=== PATIENT | female | born 2005 | race Caucasian/White ===

== ENCOUNTER 2024-09-26 13:46 | Emergency (ER) | payer OTHER, SELFPAY ==
[2024-09-26 14:04] VITALS: BP 120/69; PULSE 72; RESP 16; TEMP 36.6; O2SAT 100
[2024-09-26 14:22] LABS: BEDSIDEPREGUCG Negative (Negative)
[2024-09-26 14:29] LABS: Add Urine Microscopic? YES; Appearance Urine Turbid (Clear)
[2024-09-26 14:40] LABS: Bacteria Urine 1+ /hpf; Need Manual Microscopic Reviewed; Non Pathogenic Casts 0-2; RBC Urine >100 /hpf (0-2); Squamous Epithelial Cell Urine None Seen /hpf (Few); WBC Urine >100 /hpf (0-3)
[2024-09-26 14:45] LABS: Color Urine Red (Yellow)
[2024-09-26 15:11] VITALS: BP 106/73; PULSE 86; RESP 16; TEMP 36.5; O2SAT 98
[2024-09-26] MEDS: NITROFURANTOIN MONOHYD MACROCR 100 MG CAP PO (15:59)
--- NOTE | 2024-09-26 19:19 | ED.FEMALEGU ---
HPI - Female Genitourinary General Chief complaint: Urogenital-Female Stated complaint: UTI Time Seen by Provider: 09/26/24 15:25 History of Present Illness HPI Narrative: Patient was recently diagnosed with a UTI, however she has not been taking her medications as prescribed, and overall feels likely UTI has been getting worse. Reports dysuria with some chills however no nausea or vomiting, and no flank or back pain Related Data Allergies Allergy/AdvReac Type Severity Reaction Status Date / Time sulfamethoxazole Allergy Hives Verified 09/26/24 13:49 [From ] trimethoprim [From ] Allergy Hives Verified 09/26/24 13:49 Review of Systems Review of Systems: All systems reviewed & are unremarkable except as noted in HPI and below Exam Narrative: EXAMINATION OF ORGAN SYSTEMS/BODY AREAS: Constitutional: Vital signs per nursing GENERAL:[No acute distress, non-toxic appearing.] HEAD: Normal with no signs of head trauma. EYES: EOMI, conjunctiva normal ENT: Hearing grossly intact LUNGS: Nonlabored breathing. HEART: [Regular rate and rhythm] ABD: [Soft], [nontender to palpation], no CVA tenderness EXT: Normal range of motion SKIN: [No rashes or lesions.] NEURO: [Alert and oriented x 3. No gross focal sensory or strength deficits.] PSYCH: Normal affect Course Vital Signs Vital signs: Vital Signs Temperature 97.9 F 09/26/24 14:04 Pulse Rate 72 09/26/24 14:04 Respiratory Rate 16 09/26/24 14:04 Blood Pressure 120/69 09/26/24 14:04 Pulse Oximetry 100 09/26/24 14:04 Temperature 97.7 F 09/26/24 15:11 Pulse Rate 86 09/26/24 15:11 Respiratory Rate 16 09/26/24 15:11 Blood Pressure 106/73 09/26/24 15:11 Pulse Oximetry 98 09/26/24 15:11 Oxygen Delivery Room Air 09/26/24 15:11 MDM - Female Genitourinary MDM Narrative Medical decision making narrative: 19 year-old patient presenting with suprapubic pain and urinary symptoms consistent with UTI. Urinalysis is obtained and positive for signs of infection. Urine culture sent. [ test is negative.] Patient started on Macrobid as she already tried taking Augmentin and was not effective, she has no flank pain and she has normal vital signs so I doubt pyelonephritis, and she is strongly advised to return for any increasing or worsening pain, fevers or vomiting. They expressed understanding of instructions and is discharged in stable condition. Lab Data Labs: Lab Results 09/26/24 09/26/24 Range/Units 14:05 14:18 Urine Color Red H (Yellow) Urine Appearance Turbid H (Clear) Urine pH TNP Ur Specific [place] TNP Urine Protein TNP Urine Glucose (UA) TNP Urine Ketones TNP Ur Blood (Man) TNP Urine Nitrate TNP Urine Bilirubin TNP Urine Urobilinogen TNP Add Ur Microanalysis Reviewed Leukocyte Esterase Rfl TNP Urine RBC >100 H (0-2) /hpf Urine WBC >100 H (0-3) /hpf Ur Squamous Epith Cells None seen (Few) /hpf Urine Bacteria 1+ H /hpf Urine Casts 0-2 POC Urine HCG, Qual Negative (Negative) Discharge Plan Discharge Clinical Impression: Urinary tract infection Patient Disposition: Home, Self-Care Condition: Stable Instructions: Antibiotic Form, Urinary Tract Infection in Women (ED) Additional Instructions: Please follow up with your doctor; please take the antibiotics as prescribed. You can always return for any further issues. Prescriptions: New nitrofurantoin monohyd/m-cryst [Macrobid] 100 mg capsule 100 mg PO Q12H 7 Days Qty: 14 0RF Rx Instructions: must administer with a meal/food Follow-up/Referrals: Dale,Perry Sanchez MD [Primary Care Provider] - 2 Days Stand Alone Forms: Work/School Release IP
== END 2024-09-26 16:03 | disposition home or self-care (01) ==
PROVIDERS: Emergency Provider Emergency Medicine; PCP Family Medicine
DX: N39.0 Urinary tract infection, site not specified (principal)
CPT/HCPCS: 81001; 81025; 87086; 99283; A9270

== ENCOUNTER 2025-02-13 13:21 | Outpatient (CLI) | payer OTHER, SELFPAY ==
--- OUTSIDE RECORDS SUMMARY | 2025-02-13 14:14 | XMS_ITS | Clinical Summary ---
Author Organization [facility] Address [address] [place] [address] Care Team Providers Care Compress Machine Operator Name Role Phone Perry Hunter MD Primary Care Provider [phone] Allergies Active Allergy Reactions Criticality Noted Date Comments Sulfamethoxazole-Tri methoprim Hives,Other (See comments),Urticaria High 11/30/2017 Reaction: Other reaction(s): Other (See Comments) Medications spironolactone (ALDACTONE) 100 mg tablet Take 2 tablets (200 mg total) by mouth daily 11/29/2023 Active drospirenone-et hinyl estradioL (Keke, 28,) 3-0.03 mg per tabletIndicatio ns:Acne Vulgaris,Premen strual Dysphoric Disorder Take 1 tablet by mouth daily 84 tablet 3 01/10/2024 Active sertraline (ZOLOFT) 50 mg tabletIndicatio ns:ARMEN (generalized anxiety disorder) TAKE 1 TABLET BY MOUTH EVERY MORNING 90 tablet 1 04/10/2024 Active ARIPiprazole (ABILIFY) 2 mg tablet Take 1 tablet (2 mg total) by mouth daily 04/14/2024 Active hydrOXYzine (ATARAX) 10 mg tablet TAKE 1-2 TABLETS (10-20 MG) BY MOUTH EVERY DAY NEEDED FOR ANXIETY/ PANIC 04/14/2024 Active dicyclomine (BENTYL) 10 mg capsule TAKE 1 CAPSULE (10 MG TOTAL) BY MOUTH 2 (TWO) TIMES A DAY NEEDED (ABDOMINAL CRAMPS) 180 capsule 1 06/28/2024 Active Bacillus coagulans (PROBIOTIC, B. COAGULANS, ORAL) Take by mouth Active buPROPion XL (WELLBUTRIN XL) 300 mg 24 hr tablet TAKE 1 TABLET (300 MG TOTAL) BY MOUTH EVERY MORNING. 90 tablet 09/30/2024 Active Active Problems Problem Noted Date Diagnosed Date Nausea 06/14/2024 Diarrhea 06/14/2024 Abnormal weight loss 09/18/2023 Assessment & Plan (09/18/2023 1:00 PM CDT): Has lost 20 lb over the past year has gained 10 lb back. -will order labs for further evaluation Moderate episode of recurrent major depressive d isorder 11/23/2021 Assessment & Plan (11/16/2022 3:14 PM ADMINISTRATOR): Restart wellbutrin XL at 150 mg daily. She'll let me know if she feels needs to go up on dose again or add back on lexapro but she's been doing better and would like to take less medication if possible. Assessment & Plan (07/07/2022 12:25 PM CDT): Improved and stable on lexapro 10 mg daily and wellbutrin XL 300 mg daily. Will continue. Assessment & Plan (05/26/2022 8:09 AM CDT): Improving. Increase Wellbutrin XL to 300 mg daily. Continue lexapro 10 mg daily. Discussed with patient about common side effects of medication including potential for worsening symptoms or new/worsening suicidal thoughts. Should this occur, patient should stop the medication immediately and call/RTC or go to ER. Medications for depression/anxiety can take up to 4-6 weeks to reach maximum effectiveness in the body. Call office to report any concerning side effects or new/worsening symptoms. Assessment & Plan (04/26/2022 7:42 AM CDT): Some side effects with increased dose of lexapro. Decrease lexapro to 10 mg daily and add wellbutrin XL 150 mg daily. No history of seizures. Discussed with patient about common side effects of medication including potential for worsening symptoms or new/worsening suicidal thoughts. Should this occur, patient should stop the medication immediately and call/RTC or go to ER. Medications for depression/anxiety can take up to 4-6 weeks to reach maximum effectiveness in the body. Call office to report any concerning side effects or new/worsening symptoms. Assessment & Plan (03/23/2022 3:24 PM CDT): Improving but will increase to lexapro 20 mg daily. Recheck in 4 weeks. Advised ED for any suicidal thoughts. Has seen counselor in the past. She is released to attend graduation next week. ARMEN (generalized anxiety disorder) 02/24/2021 Assessment & Plan (03/14/2023 7:58 AM CDT): Increase wellbutrin XL to 300 mg daily. Discussed with patient about common side effects of medication including potential for worsening symptoms or new/worsening suicidal thoughts. Should this occur, patient should stop the medication immediately and call/RTC or go to ER. Medications for depression/anxiety can take up to 4-6 weeks to reach maximum effectiveness in the body. Call office to report any concerning side effects or new/worsening symptoms. She'll give me an update in 4-6 weeks through MyChart. Chronic tension-type headache, intractable 12/12 Migraine without aura and wi th status migrainosus, not intractable 11/15/2018 Assessment & Plan (11/16/2022 3:14 PM ADMINISTRATOR): Stable without prophylaxis at this time. Will call if becomes more frequent again. Assessment & Plan (12/15/2018 6:15 PM ADMINISTRATOR): H/o of migraines. Currently stable and asymptomatic. If migraine frequency or duration worsen recommend follow up in office. Otherwise follow up with neurology as scheduled. Assessment & Plan (11/19/2018 9:15 AM ADMINISTRATOR): Patient with 2 years history of headaches. Symptoms more consistent with migraines. Headache did resolve with a single Imitrex dose. Currently asymptomatic without any neurological deficits. However given the chronicity of the headaches need additional evaluation to rule out any other neurological etiologies. At this time will give a order for the CT of the head and referral to [facility] Neurology. Assessment & Plan (11/15/2018 5:54 PM ADMINISTRATOR): Suspect migraine headaches. Will start Imitrex. Migraine education provided. Follow-up in 4 weeks. Dysmenorrhea 11/30/2017 Resolved Problems Problem Noted Date Diagnosed Date Resolved Date Diarrhea 09/18/2023 12/13/2023 Assessment & Plan (09/18/2023 1:00 PM CDT): Chronic diarrhea intermittently. -we will order labs and stool studies for further evaluation -schedule colonoscopy -The risks (risks of bleeding, infection, perforation requiring surgery, missed polyps/cancer, dental injury, aspiration pneumonia, anesthesia complications such as drug reaction and cardiopulmonary complications including rare chance of ), benefits, and alternatives of the planned procedure were explained to the patient who understands and consents to having procedure done. Nausea 02/24/2021 12/13/2023 Assessment & Plan (09/18/2023 12:59 PM CDT): Chronic nausea for over a year, getting progressively worse. Symptoms seem to be in the mornings and after meals. Associated with fullness and bloating. Zofran has not helped however Compazine seems to help with the nausea. She admits to using marijuana nightly. Did a 4 week trial of PPI however this did not help and actually made her symptoms worse. -avoid NSAIDS and marijuana -we will order labs and ultrasound for further evaluation -schedule EGD -The risks (risks of bleeding, infection, perforation requiring surgery, missed polyps/cancer, dental injury, aspiration pneumonia, anesthesia complications such as drug reaction and cardiopulmonary complications including rare chance of ), benefits, and alternatives of the planned procedure were explained to the patient who understands and consents to having procedure done. Assessment & Plan (03/14/2023 7:58 AM CDT): Chronic. No relation to meals. US abdomen normal in the past. She saw pediatric GI a few years ago. No definitive diagnosis given. Will check food allergy panel and refer to GI. Can use phenergan PRN for nausea. Assessment & Plan (04/26/2022 7:41 AM CDT): Intermittent. Possible gastritis versus GERD versus side effect of lexapro. Start pepcid PRN Vertigo 02/24/2021 12/13/2023 Dyspnea on exertion 06/04/2018 11/23/19 Chest pain on breathing 06/04/201802/2022 Chest pain 11/23/2021 Encounters Date Type Department Care Team Description 02/11/2025 Telephone [facility] Family Medicine at [address] [place] [address] Perry Hunter MD Referral Request from Last 3 Months Immunizations Immunization Administration Dates Next Due DTaP 5 Pertussis 09/02/2008, 5,02/17/2004,12/11,2003 DTaP, Unspecified 09/02/2008, 5,02/17/2004,12/11,2003 HPV, Quadrivalent 04/23/2018 HPV9 07/06/2022 Hep A, Unspecified 10/06/2010,04/05/2010 Hep B / HiB 08/17/2004 Hep B, Unspecified 2003,2003 HiB 08/17/2004,2003,2003 IPV 04/05/2010, 4,2003,10/20 Influenza, Quadrivalent, Tila l Culture-based MDCK, Preservative Free, Antibiotic Free, Intramuscular 09/07/2021 Influenza, Quadrivalent, Spl it, Preservative Free, Intramuscular 09/12/2023,11/16/2022,09/15/2020,12/28 Influenza, Unspecified 10/30/2018,2016,07/19/2016,09/03 MMR 08/12/2009,08/17/2004 Meningococcal ACWY, Unspecified 04/16/2015 Meningococcal Conjugate (Menveo) 03/23/2021 Meningococcal MCV4P (Menactra) 04/16/2015 Pneumococcal Conjugate PCV 13 02/14/2005 ,08/17/2004,2003,10/20 Pneumococcal Conjugate, Unspecified 01/19,08/17/2004,2003,10/20 Polio, Unspecified 04/05/2010, 4,2003,10/20 Tdap 04/01/2014 Varicella 08/12/2009,08/12/2007,02/14/2005 Surgical History Surgery Date Site/Laterality Comments NO PAST SURGERIES WISDOM TOOTH EXTRACTION 01/21/2022 Medical History Medical History Date Comments Dysmenorrhea Migraine headache Depression Anxiety Medullary sponge kidney of both kidneys 08/2023 seen in the scan Diarrhea Stomach cramps Bloating Family History Medical History Relation Name Comments Asthma Father Heart attack Maternal Grandmother Hyperlipidemia Maternal Grandmother Hypertension Maternal Grandmother No Known Problems Mother Breast cancer Neg Hx Colon cancer Neg Hx Congenital Hearing Loss Neg Hx Congenital heart disease Neg Hx Deep vein thrombosis Neg Hx Ovarian cancer Neg Hx Seizures Neg Hx Sudden Neg Hx Uterine cancer Neg Hx Relation Name Status Comments Father Maternal Grandfather Alive Maternal Grandmother Alive Mother Paternal Grandfather Alive Paternal Grandmother Alive Sister Alive Social History Tobacco Use Types Packs/Day Years Used Date Smoking Tobacco: Every Day Vaping Smokeless Tobacco: Never Tobacco Cessation:Counseling Given: Not Answered Alcohol Use Standard Drinks/Week Comments No 0 (1 standard drink = 0.6 oz pur e alcohol) AUDIT-C Answer Date Recorded Q1: How often do you have a drink containing alc ohol? Monthly or less 07/08/2024 Q2: How many drinks containi ng alcohol do you have on a typical day when you are drinking? 1 or 2 07/08/2024 Q3: How often do you have si x or more drinks on one occasion? Never 07/08/2024 PHQ-2 Answer Date Recorded PHQ-2 Total Score (If total score is 3 or more points, staff should administer the PHQ-9) 0 06/21/2024 Personal Safety Answer Date Recorded Have you ever been in or are you currently in a harmful physical or emotional relationship or is someone making you feel afraid or unsafe? Denies 07/08/2024 Comments No Sex and Gender Information Value Date Recorded Sex Assigned at Not on file Legal Sex Female 6:16 AM ADMINISTRATOR Gender Identity Female 12/14/2021 12:07 PM ADMINISTRATOR Sexual Orientation Not on file History Length Weight Head Circum Date/Time Gestation Age D/C Weight APGARs Delivery Method Feeding 2003 Term , no complications , no NICU stay Obstetrics History Para Term AB IAB SAB Ectopic Multiple Livin g Live Births 0 0 0 0 0 0 0 0 0 0 0 Last Filed Vital Signs Vital Sign Reading Time Taken Comments Blood Pressure 96/67 07/08/2024 10:20 AM CDT Pulse 50 07/08/2024 10:25 AM CDT Temperature 36.3 C (97.4 F) 07/08/2024 9:30 AM CDT Respiratory Rate 14 07/08/2024 10:20 AM CDT Oxygen Saturation 100% 07/08/2024 10:20 AM CDT Inhaled Oxygen Concentration - - Weight 53.3 kg (117 lb 8 oz) 06/21/2024 10:22 AM CDT Height 162.6 cm (5' 4 ) 06/21/2024 10:22 AM CDT Body Mass Index 20.17 06/21/2024 10:22 AM CDT Plan of Treatment Health Maintenance Due Date Last Done Comments Cervical Cancer Screening 2003 Pneumococcal vaccine <65 (1 of 1 - PPSV23) 2009 02/14/2005, 02/14/2005, 08/17/2004, Additional history exists Meningococcal B Vaccine (1 o f 2 - Standard) 2019 DTaP/Tdap/Td Vaccine (7 - Td or Tdap) 04/01/2024 04/01/2014, 09/02/2008, 09/02/2008, Additional history exists Covid-19 Vaccine (3 - 2023-2 5 season) 2024 11/03/2021, 10/13/2021 Influenza Vaccine (#1) 2024 3, 11/16/2022, 09/07/2021, Additional history exists Regular Well Visit/Exam 18-64 01/10/2025, 07/13/2023, 12/20/2022, Additional history exists Depression Screening 06/21/2025 06/21/2024, 12/13/2023, 11/16/2023, Additional history exists Hepatitis B Screening Completed 08/17/2004 , 2003, 2003 Varicella Vaccines Completed 08/12/2009, 0 08/12/2007, 02/14/2005 Meningococcal Vaccine Completed 03/23/2021 , 04/16/2015, 04/16/2015 HPV Vaccines Completed 07/06/2022, 04/23/2018 Hepatitis C Screening Completed 11/23/2023, 023 Goals Goal Patient Goal Type Associated Problems Recent Progress Patient-Stated? Author BH-Pain Behavioral Health Improving( 5:09 PM ADMINISTRATOR) Kina Sotomayor, PhD Note: Increase non-pharmacological strategies for coping with pain and GI Sx Procedures Procedure Name Priority Date/Time Associated Diagnosis Comments HEPATITIS C ANTIBODY Routine 11/23/2023 2:06 PM ADMINISTRATOR STI (sexually transmitted infection) from Last 3 Months or Most Recently Relevant to Health Maintenance Results * Hepatitis C antibody Blood (11/23/2023 2:06 PM ADMINISTRATOR) Hep C Ab NON-REACTI VE NON-REACT ASHOK [facility] Comment: HCV antibody was non-reactive. There is no laboratory evidence of HCV infection. In most cases, no further action is required. However, if recent HCV exposure is suspected, a test for HCV RNA (test code 24551) is suggested. For additional information please refer to http://education.[employer]/faq/NJS33w3 (This link is being provided for informational/ educational purposes only.) Blood 11/23/2023 2:06 PM ADMINISTRATOR 11/23/2023 2:09 PM ADMINISTRATOR Tracey Bruce MD LAB MICROBIOLOGY - GEN ERAL ORDERABLES Final Result [facility] [id number] [id number] from Last 3 Months or Most Recently Relevant to Health Maintenance Insurance [address] [place], [place] [id number] [facility] O Care Teams Compress Machine Operator Relationship Specialty Start Date End Date Perry Hunter MD PCP - General Family Medicine 02/24/21
--- OUTSIDE RECORDS SUMMARY | 2025-02-13 14:14 | XMS_ITS | Referral Summary ---
Author Organization [facility] Address [address] [place] [address] Care Team Providers Care Tire Debeader Name Role Phone Perry Hunter MD Primary Care Provider [phone] Encounters Date Type Department Care Team Description 02/11/2025 Telephone [facility] Family Medicine at [address] [place] [address] Perry Hunter MD Referral Request from Last 3 Months Allergies Active Allergy Reactions Criticality Noted Date [...] 11/23/2021 Assessment & Plan (11/16/2022 3:14 PM COST ACCOUNTING MANAGER): Restart wellbutrin XL at 150 mg daily. [...] 11/15/2018 Assessment & Plan (11/16/2022 3:14 PM COST ACCOUNTING MANAGER): Stable without prophylaxis at this time. Will call if becomes more frequent again. Assessment & Plan (12/15/2018 6:15 PM COST ACCOUNTING MANAGER): H/o of migraines. Currently stable and asymptomatic. If migraine frequency or duration worsen recommend follow up in office. Otherwise follow up with neurology as scheduled. Assessment & Plan (11/19/2018 9:15 AM COST ACCOUNTING MANAGER): Patient with 2 years history of headaches. Symptoms more consistent with migraines. Headache did resolve with a single Imitrex dose. Currently asymptomatic without any neurological deficits. However given the chronicity of the headaches need additional evaluation to rule out any other neurological etiologies. At this time will give a order for the CT of the head and referral to [facility] Neurology. Assessment & Plan (11/15/2018 5:54 PM COST ACCOUNTING MANAGER): Suspect migraine headaches. Will start Imitrex. Migraine [...] pain on breathing 06/04/201802/2022 Chest pain 11/23/2021 Immunizations Immunization Administration Dates Next Due DTaP [...] Unspecified 04/05/2010, 4,2003,10/20 Tdap 04/01/2014 Varicella 08/12/2009,08/12/2007,02/14/2005 Social History Tobacco Use Types Packs/Day Years [...] on file Legal Sex Female 6:16 AM COST ACCOUNTING MANAGER Gender Identity Female 12/14/2021 12:07 PM COST ACCOUNTING MANAGER Sexual Orientation Not on file Last Filed Vital Signs Vital Sign Reading [...] 06/21/2024 10:22 AM CDT Plan of Treatment Not on file Goals Goal Patient Goal Type Associated Problems Recent Progress Patient-Stated? Author BH-Pain Behavioral Health Improving( 5:09 PM COST ACCOUNTING MANAGER) Kina Sotomayor, PhD Note: Increase non-pharmacological strategies for coping with pain and GI Sx Procedures Procedure Name Priority Date/Time Associated Diagnosis Comments HEPATITIS C ANTIBODY Routine 11/23/2023 2:06 PM COST ACCOUNTING MANAGER STI (sexually transmitted infection) from Last 3 Months or Most Recently Relevant to Health Maintenance Results * Hepatitis C antibody Blood (11/23/2023 2:06 PM COST ACCOUNTING MANAGER) Hep C Ab NON-REACTI VE NON-REACT ASHOK [facility] Comment: HCV antibody was non-reactive. There is no laboratory evidence of HCV infection. In most cases, no further action is required. However, if recent HCV exposure is suspected, a test for HCV RNA (test code 28782) is suggested. For additional information please refer to http://education.[employer]/faq/CVW56g6 (This link is being provided for informational/ educational purposes only.) Blood 11/23/2023 2:06 PM COST ACCOUNTING MANAGER 11/23/2023 2:09 PM COST ACCOUNTING MANAGER Tracey Bruce MD LAB MICROBIOLOGY - GEN ERAL ORDERABLES Final Result [facility] [id number] [id number] from Last 3 Months or Most Recently Relevant to Health Maintenance Insurance [facility] H[facility] Care Teams Tire Debeader Relationship Specialty Start Date End Date Peryr Hunter MD PCP - General Family Medicine 02/24/21
--- OUTSIDE RECORDS SUMMARY | 2025-02-13 14:14 | XMS_ITS | Encounter Summary ---
Author Organization [facility] Address [address] [place] [address] Care Team Providers Care Kitchen Manager Name Role Phone Perry Hunter MD Primary Care Provider [phone] Encounter Details Date Type Department Care Team (Late st Contact Info) Description 03/23/2021 Telephone [facility] Ultrasound [place] [id number] Yaneth Rivera, IVY Social History Tobacco Use Types Packs/Day Years Used Date Smoking Tobacco: Never Smokeless Tobacco: Never Alcohol Use Standard Drinks/Week Comments No 0 (1 standard drink = 0.6 oz pur e alcohol) PHQ-2 Answer Date Recorded PHQ-2 Total Score (If total score is 3 or more points, staff should administer the PHQ-9) 0 02/24/2021 Comments No Sex and Gender Information Value Date Recorded Sex Assigned at Not on file Legal Sex Female 6:16 AM DUDE WRANGLER Gender Identity Female 12/14/2021 12:07 PM DUDE WRANGLER Sexual Orientation Not on file documented as of this encounter Plan of Treatment Not on file documented as of this encounter Visit Diagnoses Not on filedocumented in this encounter Additional Health Concerns Infection Onset Date Last Indicated Resolved Time COVID: Suspected 11/23/2023 11/23/2023 11/24/2023 3:05 AM DUDE WRANGLER Exposure, COVID-19 Comment:Added automatically based on COVID19 lab answers indicating exposure risk 11/23/2023 11/23/2023 12/03/2023 3:[address] COVID: Suspected 11/23/2023 11/24/2023 11/24/2023 10:11 AM DUDE WRANGLER documented as of this encounter Care Teams Kitchen Manager Relationship Specialty Start Date End Date Perry Hunter MD PCP - General Family Medicine 02/24/21 documented as of this encounter
--- OUTSIDE RECORDS SUMMARY | 2025-02-13 14:14 | XMS_ITS | Encounter Summary ---
Author Organization [facility] Healthcare Address [address] [place] [address] Care Team Providers Care Curber Name Role Phone Perry Hunter MD Primary Care Provider [phone] Reason for Visit * Reason Onset Date Comments Referral Request 02/11/2025 Encounter Details Date Type Department Care Team (Late st Contact Info) Description 02/11/2025 Telephone [facility] Family Medicine at [address] [place] [address] Perry Hunter MD [address] [place] [phone] Referral Request Social History Tobacco Use Types Packs/Day Years Used Date Smoking Tobacco: Every Day Vaping Smokeless Tobacco: Never Alcohol Use Standard Drinks/Week [...] on file Legal Sex Female 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 I faxed coverage & benefit information from [facility] to [facility] as well. * Telephone Encounter - Candace Flores - 02/11/2025 11:00 AM CDT Referral Provider Name: Jordy Vallejo Specialty: gastroenterology Address: [address] [place] [address], Zip: [place] [address] Diagnosis Code/Symptom/Reason Patient is being seen: IBS and Gastritis Date of Appointment: 02/12/2025 NPI#: [id number] Tax ID#: [id number] Is insurance in chart up to date? yes Additional Comments: [employer] O insurance referral Does message need to be routed? Yes-Action Needed documented in this encounter Plan of Treatment Not on file documented as of this encounter Goals Goal Patient Goal Type Associated Problems Recent Progress Patient-Stated? Author BH-Pain Behavioral Health Improving( 5:09 PM COMMERCIAL ATTORNEY) Kina Sotomayor, PhD Note: Increase non-pharmacological strategies for coping with pain and GI Sx documented as of this encounter Visit Diagnoses Not on filedocumented in this encounter Care Teams Curber Relationship Specialty Start Date End Date Perry Hunter MD PCP - General Family Medicine 02/24/21 documented as of this encounter
--- OUTSIDE RECORDS SUMMARY | 2025-02-13 14:14 | XMS_ITS | Clinical Summary ---
Author Organization [facility] Address [address] [place] [address] Phone Care Team Providers Care Web Applications Architect Name Role Phone Perry Hunter MD Primary Care Provider [phone] Allergies Active Allergy Reactions Criticality Noted Date Comments Sulfamethoxazole-Trimethop rim Hives,Other (See Comments) High 11/30/2017 Medications nortriptyline (PAMELOR) 25 mg capsule Take 1 Capsule (25 mg) by mouth daily at bedtime. 30 Capsule 12 08/09/2019 Active busPIRone (BUSPAR) 10 mg tablet Take 10 mg by mouth 2 times daily. 08/09/2023 Active prochlorperazin e maleate (COMPAZINE) 10 mg tablet Take 10 mg by mouth every 6 hours as needed. 01/31/2022 Active Active Problems Problem Noted Date Diagnosed Date Intractable migraine without aura and without status migrainosus 12/12/2018 Chronic tension-type headache, intractable 12/12 Family History Medical History Relation Name Comments Migraines Father Healthy Mother Healthy Sister 1 Healthy Sister 2 Relation Name Status Comments Father Mother Sister 1 Sister 2 Social History Tobacco Use Types Packs/Day Years Used Date Smoking Tobacco: Never Smokeless Tobacco: Never Tobacco Cessation:Counseling Given: Not Answered Alcohol Use Standard Drinks/Week Comments No 0 (1 standard drink = 0.6 oz pur e alcohol) Adolescent Education Answer Date Record ed Getting School Help Needed Not on file 06/12 Feeling Safe Answer Date Recorded Are you in a relationship wi th someone who hurts you emotionally and/or physically? 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 Gender Identity Not on file Sexual Orientation Not on file Last Filed Vital Signs Vital Sign Reading Time Taken Comments Blood Pressure 121/67 09/07/2023 10:53 PM CDT Pulse 94 09/07/2023 10:53 PM CDT Temperature 37.2 C (98.9 F) 09/07/2023 10:53 PM CDT Respiratory Rate 18 09/07/2023 10:53 PM CDT Oxygen Saturation 99% 09/07/2023 10:53 PM CDT Inhaled Oxygen Concentration - - Weight 52.2 kg (115 lb) 09/07/2023 7:48 PM CDT Height 162.6 cm (5' 4 ) 09/07/2023 7:48 PM CDT Body Mass Index 19.74 09/07/2023 7:48 PM CDT Plan of Treatment Health Maintenance Due Date Last Done Comments CHLAMYDIA SCREENING (ANNUAL) 11-24 YEARS 2014 DTAP/TDAP/TD VACCINES (6 - Td or Tdap) 04/01/2024 04/01/2014, 09/02/2008, 09/02/2008, Additional history exists INFLUENZA VACCINE (#1) 2024 , 09/07/2021, 09/15/2020, Additional history exists CERVICAL CANCER SCREENING 2024 PAP SMEAR 2024 PAP SMEAR 2024 HEPATITIS B VACCINES Completed 08/17/2004, 2003, 2003 PNEUMOCOCCAL VACCINE 0-49 YEARS Aged Out 02/14/2005, 02/14/2005, 08/17/2004, Additional history exists No longer eligible based on patient's age to complete this topic HPV VACCINES Completed 07/06/2022, 04/23/2018 Insurance [employer] HMO Care Teams Web Applications Architect Relationship Specialty Start Date End Date Perry Hunter MD PCP - General Family Practice 09/07/23
--- OUTSIDE RECORDS SUMMARY | 2025-02-13 14:14 | XMS_ITS | Clinical Summary ---
Author Organization [facility] Address [address] [place] [address] Care Team Providers Care Country Director Name Role Phone Aicha Myles DO Primary Care Provider Unavailable Source Comments [facility],non-owned Affiliates and Associated Physician Practices is amultiple site organization consisting of ambulatory clinics and hospital sitesin [place], [place], [place] and [place]. This disclosure is being madepursuant to the Care Everywhere program and may not contain all information available regarding this patient. Last updated 18.[facility] Allergies Active Allergy Reactions Criticality Noted Date Comments Sulfamethoxazole W-Trimethoprim Urticaria Medium 06/2019 Medications * Be aware that medications may not be up to date on this document. Alwaysverify current medications with the patient. Medication Sig Dispensed Refills Start Date End Date Status SPRINTEC 28 0.25-35 MG-MCG tablet Take 1 tablet by mouth once daily 06/02/2020 Active nortriptyline (PAMELOR) 25 MG capsuleIndications:I ntractable chronic migraine without aura and without status migrainosus Take 1 (one) capsule by mouth at bedtime 30 capsule 3 01/19/2022 Active ketorolac (TORADOL) 10 MG tabletIndications:In tractable chronic migraine without aura and without status migrainosus Take with Reglan and Compazine every 4 hours for no more than 24 hours. 10 tablet 01/31/2022 Active metoclopramide (REGLAN) 10 MG tabletIndications:In tractable chronic migraine without aura and without status migrainosus Take with Toradol and Compazine every 4 hours for no more than 24 hours. 10 tablet 01/31/2022 Active prochlorperazine (COMPAZINE) 10 MG tabletIndications:In tractable chronic migraine without aura and without status migrainosus Take with Toradol and Reglan every 4 hours for no more than 24 hours. 10 tablet 01/31/2022 Active Immunizations Name Administration Dates Next Due INFLUENZA VACCINE, QUADR. (F LUZONE; FLULAVAL; FLUARIX; AFLURIA QUADRIVALENT; 6MO+), 0.5 ML (IIV4) 09/15/2020 Social History Tobacco Use Types Packs/Day Years Used Date Smoking Tobacco: Never Smokeless Tobacco: Never Sex and Gender Information Value Date Recorded Sex Assigned at Not on file Gender Identity Not on file Sexual Orientation Not on file Last Filed Vital Signs Vital Sign Reading Time Taken Comments Blood Pressure 114/70 09/15/2020 11:02 AM CDT Pulse 80 09/15/2020 11:02 AM CDT Temperature 36.7 C (98.1 F) 09/15/2020 11:02 AM CDT Respiratory Rate 18 09/15/2020 11:0 2 AM CDT Oxygen Saturation 98% 09/15/2020 11: 02 AM CDT Inhaled Oxygen Concentration - - Weight 56.2 kg (123 lb 12.8 oz) 020 11:02 AM CDT Height 165.5 cm (5' 5.16 ) 09/15/2020 1 1:02 AM CDT Body Mass Index 20.5 09/15/2020 11:02 AM CDT Plan of Treatment Health Maintenance Due Date Last Done Comments PAP SMEAR 2003 HIV SCREENING 2018 HPV VACCINE (1 - 3-dose series) 2018 CHLAMYDIA/GONORRHEA SCREENING 2019 MENINGOCOCCAL (Group B) VACCINE SHARED DECISION-MAKING (1 of 2 - Standard) 2019 HEPATITIS C SCREENING 08/05/2021 DTAP/TDAP/TD VACCINES (1 - Tdap) 2022 HEPATITIS B VACCINE (1 of 3 - 19+ 3-dose series) 2022 COVID-19 VACCINE (3 - 2023- season) 2024 11/03/2021, 10/13/2021 INFLUENZA VACCINE (#1) 2024 , 09/15/2020, 10/30/2018, Additional history exists DEPRESSION SCREENING 11/20/2024 ZOSTER VACCINE (1 of 2) 2053 HIB VACCINE Aged Out No longer eligi ble based on patient's age to complete this topic MENINGOCOCCAL GROUPS A/C/Y/W VACCINE Aged Out No longer eligible based on patient's age to complete this topic PNEUMOCOCCAL VACCINE Aged Out No long er eligible based on patient's age to complete this topic Care Teams Country Director Relationship Specialty Start Date End Date Aicha Myles DO PCP - General Family Medicine 08/27/19
--- OUTSIDE RECORDS SUMMARY | 2025-02-13 14:14 | XMS_ITS | Encounter Summary ---
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 Gender Identity Female 12/14/2021 12:07 PM AIR ANALYSIS TECHNICIAN Sexual Orientation Not on file documented as of this encounter Plan of Treatment Not on file documented as of this encounter Visit Diagnoses Not on filedocumented in this encounter Additional Health Concerns Infection Onset Date Last Indicated Resolved Time COVID: Suspected 11/23/2023 11/23/2023 11/24/2023 3:05 AM AIR ANALYSIS TECHNICIAN Exposure, COVID-19 Comment:Added automatically based on COVID19 lab answers indicating exposure risk 11/23/2023 11/23/2023 12/03/2023 3:[address] COVID: Suspected 11/23/2023 11/24/2023 11/24/2023 10:11 AM AIR ANALYSIS TECHNICIAN documented as of this encounter Care Teams Transportation Driver Relationship Specialty Start Date End Date Perry Hunter MD PCP - General Family Medicine 02/24/21 documented as of this encounter
--- OUTSIDE RECORDS SUMMARY | 2025-02-13 14:14 | XMS_ITS | Encounter Summary ---
Author Organization [facility] Address [address] [place] [address] Phone Care Team Providers Care Hand Ii Tube Bender Name Role Phone Candace Arredondo MD Primary Care Provider [phone] Aicha Myles DO Primary Care Provider Perry Hunter MD Primary Care Provider [phone] Encounter Details Date Type Department Care Team (Late st Contact Info) Description 05/07/2018 Telephone [facility] Pediatric Allergy and Pulmonology [facility] 2[address] [place] [address] [place] [address] Lisa Hughes Social History Tobacco Use Types Packs/Day Years Used Date Smoking Tobacco: Never Smokeless Tobacco: Never Alcohol Use Standard Drinks/Week Comments No 0 (1 standard drink = 0.6 oz pur e alcohol) Comments No Sex and Gender Information Value Date Recorded Sex Assigned at Not on file Legal Sex Female 6:16 AM ENTRY ENGINEER Gender Identity Female 12/14/2021 12:07 PM ENTRY ENGINEER Sexual Orientation Not on file documented as of this encounter Plan of Treatment Not on file documented as of this encounter Visit Diagnoses Not on filedocumented in this encounter Additional Health Concerns Infection Onset Date Last Indicated Resolved Time COVID: Suspected 11/23/2023 11/23/2023 11/24/2023 3:05 AM ENTRY ENGINEER Exposure, COVID-19 Comment:Added automatically based on COVID19 lab answers indicating exposure risk 11/23/2023 11/23/2023 12/03/2023 3:[address] COVID: Suspected 11/23/2023 11/24/2023 11/24/2023 10:11 AM ENTRY ENGINEER documented as of this encounter Care Teams Hand Ii Tube Bender Relationship Specialty Start Date End Date Candace Arredondo MD [address] [place] [address] PCP - General Pediatrics 10/30/17 11/01/18 Aicha Myles DO [address] [place] [address] PCP - General Family Practice 11/02/18 02/23/21 Perry Hunter MD [address] [place] [address] PCP - General Family Medicine 02/24/21 documented as of this encounter
[2025-02-13 19:25] LABS: Hematocrit 42.7 % (37.0-47.0); Hemoglobin 13.8 g/dL (12.0-15.0); Mean Corpuscular HGB Conc 32.3 g/dl (32-36); Mean Corpuscular Hemoglobin 30.7 pg (26-34); Mean Corpuscular Volume 94.9 fl (80-100); Mean Platelet Volume 9.8 fl (7.4-10.4); Platelet Count Result 251 k/mm3 (150-375); Red Cell Distribution Width 12.2 % (11.5-14.5); White Blood Count 6.1 K/mm3 (4.5-10.0)
[2025-02-13 20:05] LABS: Alanine Aminotransferase 39 U/L (6-35); Albumin Level 4.9 g/dL (3.5-5.1); Alkaline Phosphatase 55 U/L (38-126); Anion Gap 11 mmol/L (4-12); Aspartate Amino Transferase 39 U/L (14-36); Bilirubin,Total 0.6 mg/dL (0.2-1.3); Blood Urea Nitrogen 20 mg/dL (7-17); Calcium 9.9 mg/dL (8.4-10.2); Carbon Dioxide 29 mmol/L (22-30); Chloride 99 mmol/L (98-107); Estimated Glomerular Filt Rate > 60; Glucose 59 mg/dL (65-110); Potassium 4.1 mmol/L (3.4-5.0); Sodium 139 mmol/L (137-145)
[2025-02-13 20:22] LABS: Iron 172 ug/dL (37-170)
[2025-02-13 20:34] LABS: Percent Iron Saturation 45 % (20-50)
== END 2025-02-13 13:22 | disposition home or self-care (01) ==
LOC: ANHGOSHLAB 13:22
PROVIDERS: PCP Family Medicine; Visit Provider Nurse Practitioner
DX: K58.9 Irritable bowel syndrome, unspecified (principal)
CPT/HCPCS: 36415; 80053; 82728; 83540; 83550; 84443; 85027

== ENCOUNTER 2025-03-18 12:16 | Outpatient (CLI) | payer OTHER, SELFPAY ==
--- OUTSIDE RECORDS SUMMARY | 2025-03-18 13:19 | XMS_ITS | Clinical Summary ---
Author Organization 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 Gender Identity Not on file Sexual Orientation [...] 11-24 YEARS 2014 DTAP/TDAP/TD VACCINES (6 - T d or Tdap) 04/01/2024 04/01/2014, 09/02/2008, 09/02/2008, Additional history exists INFLUENZA VACCINE (#1) 2024 , 09/07/2021, 09/15/2020, Additional history exists CERVICAL CANCER SCREENING 2024 HPV/Cotest (21-29) 2024 PAP SMEAR 2024 HEPATITIS B VACCINES Completed 08/17/2004, 2003, 2003 HPV VACCINES Completed 07/06/2022, 04/23/2018 Insurance [facility] ONLY Care Teams Tourist Agent Relationship Specialty Start Date End Date Perry Hunter MD PCP - General Family Practice 09/07/23
--- OUTSIDE RECORDS SUMMARY | 2025-03-18 13:19 | XMS_ITS | Encounter Summary ---
Author Organization [facility] Address [address] [place] [address] Phone Care Team Providers Care Caterpillar Tractor Operator Name Role Phone Candace Arredondo MD Primary Care Provider [phone] Aicha Myles DO Primary Care Provider Perry Hunter MD Primary Care Provider [phone] Encounter Details Date Type Department Care Team (Late st Contact Info) Description 05/07/2018 Telephone [facility] Pediatric Allergy and Pulmonology [facility] 2nd [place] [address] [place] [address] Lisa Hughes Social History Tobacco Use Types Packs/Day Years Used Date Smoking Tobacco: Never Smokeless Tobacco: Never Alcohol Use Standard Drinks/Week Comments No 0 (1 standard drink = 0.6 oz pur e alcohol) Comments No Sex and Gender Information Value Date Recorded Sex Assigned at Not on file Legal Sex Female 6:16 AM WIRE WEAVER Gender Identity Female 12/14/2021 12:07 PM WIRE WEAVER Sexual Orientation Not on file documented as of this encounter Plan of Treatment Not on file documented as of this encounter Visit Diagnoses Not on filedocumented in this encounter Additional Health Concerns Infection Onset Date Last Indicated Resolved Time COVID: Suspected 11/23/2023 11/23/2023 11/24/2023 3:05 AM WIRE WEAVER Exposure, COVID-19 Comment:Added automatically based on COVID19 lab answers indicating exposure risk 11/23/2023 11/23/2023 12/03/2023 3:[address] COVID: Suspected 11/23/2023 11/24/2023 11/24/2023 10:11 AM WIRE WEAVER documented as of this encounter Care Teams Caterpillar Tractor Operator Relationship Specialty Start Date End Date Candace Arredondo MD [address] [place] [address] PCP - General Pediatrics 10/30/17 11/01/18 Aicha Myles DO [address] [place] [address] PCP - General Family Practice 11/02/18 02/23/21 Perry Hunter MD [address] [place] [address] PCP - General Family Medicine 02/24/21 documented as of this encounter
--- OUTSIDE RECORDS SUMMARY | 2025-03-18 13:19 | XMS_ITS | Referral Summary ---
Author Organization [facility] Address [address] [place] [address] Care Team Providers Care Call Center Associate Name Role Phone Perry Hunter MD Primary Care Provider [phone] Encounters Date Type Department Care Team Description 03/18/2025 Telephone [facility] Family Medicine at [address] [place] [phone] Perry Hunter MD Symptom Based Call 02/11/2025 Telephone [facility] Medicine at [address] [place] [phone] Perry Hunter MD Referral Request from Last 3 Months Allergies Active Allergy Reactions Criticality Noted Date Comments Sulfamethoxazole-Tri methoprim Hives,Other (See comments),Urticaria High 11/30/2017 Reaction: Other reaction(s): Other (See Comments) Medications spironolactone (ALDACTONE) 100 mg tablet Take 2 tablets (200 mg total) by mouth daily 11/29/2023 Active drospirenone-et hinyl estradioL (Ekke, 28,) 3-0.03 mg per tabletIndicatio ns:Acne Vulgaris,Premen [...] BY MOUTH EVERY MORNING. 90 tablet 09/30/2024 5 Active Active Problems Problem Noted Date Diagnosed Date Nausea 06/14/2024 Diarrhea 06/14/2024 Abnormal weight loss 09/18/2023 Assessment & Plan (09/18/2023 1:00 PM CDT): Has lost 20 lb over the past year has gained 10 lb back. -will order labs for further evaluation Moderate episode of recurrent major depressive d isorder 11/23/2021 Assessment & Plan (11/16/2022 3:14 PM DIRECTOR RECREATION CENTER): Restart wellbutrin XL at 150 mg daily. [...] 11/15/2018 Assessment & Plan (11/16/2022 3:14 PM DIRECTOR RECREATION CENTER): Stable without prophylaxis at this time. Will call if becomes more frequent again. Assessment & Plan (12/15/2018 6:15 PM DIRECTOR RECREATION CENTER): H/o of migraines. Currently stable and asymptomatic. If migraine frequency or duration worsen recommend follow up in office. Otherwise follow up with neurology as scheduled. Assessment & Plan (11/19/2018 9:15 AM DIRECTOR RECREATION CENTER): Patient with 2 years history of headaches. Symptoms more consistent with migraines. Headache did resolve with a single Imitrex dose. Currently asymptomatic without any neurological deficits. However given the chronicity of the headaches need additional evaluation to rule out any other neurological etiologies. At this time will give a order for the CT of the head and referral to [facility] Neurology. Assessment & Plan (11/15/2018 5:54 PM DIRECTOR RECREATION CENTER): Suspect migraine headaches. Will start Imitrex. Migraine [...] on file Legal Sex Female 6:16 AM DIRECTOR RECREATION CENTER Gender Identity Female 12/14/2021 12:07 PM DIRECTOR RECREATION CENTER Sexual Orientation Not on file Last Filed [...] Author BH-Pain Behavioral Health Improving( 5:09 PM DIRECTOR RECREATION CENTER) Kina Sotomayor, PhD Note: Increase non-pharmacological strategies for coping with pain and GI Sx Procedures Procedure Name Priority Date/Time Associated Diagnosis Comments HEPATITIS C ANTIBODY Routine 11/23/2023 2:06 PM DIRECTOR RECREATION CENTER STI (sexually transmitted infection) from Last 3 Months or Most Recently Relevant to Health Maintenance Results * Hepatitis C antibody Blood (11/23/2023 2:06 PM DIRECTOR RECREATION CENTER) Hep C Ab NON-REACTI VE NON-REACT [facility] Comment: HCV antibody was non-reactive. There is no laboratory evidence of HCV infection. In most cases, no further action is required. However, if recent HCV exposure is suspected, a test for HCV RNA (test code 13614) is suggested. For additional information please refer to http://education.[place]/faq/TTN30y3 (This link is being provided for informational/ educational purposes only.) Blood 11/23/2023 2:06 PM DIRECTOR RECREATION CENTER 11/23/2023 2:09 PM DIRECTOR RECREATION CENTER Tracey Bruce MD LAB MICROBIOLOGY - GEN ERAL ORDERABLES Final Result [facility] [address] [place] [address] from Last 3 Months or Most Recently Relevant to Health Maintenance Insurance [facility] Care Teams Call Center Associate Relationship Specialty Start Date End Date Perry Hunter MD PCP - General Family Medicine 02/24/21
--- OUTSIDE RECORDS SUMMARY | 2025-03-18 13:19 | XMS_ITS | Encounter Summary ---
Author Organization [facility] Healthcare Address [address] [place] [address] Care Team Providers Care Plant Tour Guide Name Role Phone Perry Hunter MD Primary Care Provider Encounter Details Date Type Department Care Team (Late st Contact Info) Description 03/17/2021 Telephone [facility] [place] [address] Kristina Martinez, Social History Tobacco Use Types Packs/Day Years [...] on file Legal Sex Female 6:16 AM ROLL EDGE STITCHER HAND Gender Identity Female 12/14/2021 12:07 PM ROLL EDGE STITCHER HAND Sexual Orientation Not on file documented as of this encounter Plan of Treatment Not on file documented as of this encounter Visit Diagnoses Not on filedocumented in this encounter Additional Health Concerns Infection Onset Date Last Indicated Resolved Time COVID: Suspected 11/23/2023 11/23/2023 11/24/2023 3:05 AM ROLL EDGE STITCHER HAND Exposure, COVID-19 Comment:Added automatically based on COVID19 lab answers indicating exposure risk 11/23/2023 11/23/2023 12/03/2023 3:[address] COVID: Suspected 11/23/2023 11/24/2023 11/24/2023 10:11 AM ROLL EDGE STITCHER HAND documented as of this encounter Care Teams Plant Tour Guide Relationship Specialty Start Date End Date Perry Hunter MD PCP - General Family Medicine 02/24/21 documented as of this encounter
--- OUTSIDE RECORDS SUMMARY | 2025-03-18 13:19 | XMS_ITS | Encounter Summary ---
Author Organization [facility] Healthcare Address [address] [place] [address] Care Team Providers Care Psychiatric Lpn Name Role Phone Perry Hunter MD Primary Care Provider [phone] Reason for Visit * Reason Onset Date Comments Symptom Based Call 03/18/2025 Encounter Details Date Type Department Care Team (Late st Contact Info) Description 03/18/2025 Telephone [facility] Family Medicine at [address] [place] [address] Perry Hunter MD [address] [place] [id number] Symptom Based Call Social History Tobacco Use Types Packs/Day Years [...] on file Legal Sex Female 6:16 AM [facility] Gender Identity Female 12/14/2021 12:07 PM [facility] Sexual Orientation Not on file documented as of this encounter Miscellaneous Notes * Telephone Encounter - Estela Zapien RN - 03/18/2025 12:05 PM CDT Patient c/o of dysuria, hematuria, and urgency. Order being faxed. Patient is aware * Telephone Encounter - Liliam Martell MA - 03/18/2025 11:54 AM CDT Symptom Based Call Chief Complaint(s): UTI Duration: 2-3 days What type of symptom(s) is the patient experiencing? Red Flag. Is the patient concerned they are experiencing a medical emergency requiring an ambulance? No Additional Comments: Pt would like to have a lab order urine culture Faxed to [phone]. Please contact pt as soon as this order is put in or if will not approve. Pt turned down appointment, and to speak with anyone. Does message need to be routed? Yes-Action Needed documented in this encounter Plan of Treatment Scheduled Orders Name Type Priority Associated Diagnoses Orde r Schedule Urinalysis reflex to microscopic and culture Urine, bladder Microbiology Routine Hematuria, unspecified type Dysuria Urgency of urination Expected: 03/21/2025, Expires: 03/18/2026 documented as of this encounter Goals Goal Patient Goal Type Associated Problems Recent Progress Patient-Stated? Author BH-Pain Behavioral Health Improving( 5:09 PM [facility]) Kina Sotomayor, PhD Note: Increase non-pharmacological strategies for coping with pain and GI Sx documented as of this encounter Visit Diagnoses Diagnosis Hematuria, unspecified type- Primary Dysuria Urgency of urination documented in this encounter Care Teams Psychiatric Lpn Relationship Specialty Start Date End Date Perry Hunter MD PCP - General Family Medicine 02/24/21 documented as of this encounter
--- OUTSIDE RECORDS SUMMARY | 2025-03-18 13:19 | XMS_ITS | Clinical Summary ---
Author Organization [facility] Address [address] [place] [address] Care Team Providers Care Tech Ed/Woodshop Teacher Name Role Phone Perry Hunter MD Primary Care Provider [phone] Allergies Active Allergy Reactions Criticality Noted Date [...] 11/23/2021 Assessment & Plan (11/16/2022 3:14 PM [facility]): Restart wellbutrin XL at 150 mg daily. [...] me an update in 4-6 weeks through [employer]. Chronic tension-type headache, intractable 12/12 Migraine without aura and wi th status migrainosus, not intractable 11/15/2018 Assessment & Plan (11/16/2022 3:14 PM [facility]OM[facility]CR[facility] CO[facility]): Stable without prophylaxis at this time. Will call if becomes more frequent again. Assessment & Plan (12/15/2018 6:15 PM [facility]OMEN[facility]CR[facility] COACH): H/o of migraines. Currently stable and asymptomatic. If migraine frequency or duration worsen recommend follow up in office. Otherwise follow up with neurology as scheduled. Assessment & Plan (11/19/2018 9:15 AM [facility]OMEN[facility]CROS[facility] COACH): Patient with 2 years history of headaches. Symptoms more consistent with migraines. Headache did resolve with a single Imitrex dose. Currently asymptomatic without any neurological deficits. However given the chronicity of the headaches need additional evaluation to rule out any other neurological etiologies. At this time will give a order for the CT of the head and referral to [facility]. 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 Will start Imitrex. Migraine [...] Type Department Care Team Description 03/18/2025 Telephone [facility] Family Medicine at [address] [place] [address] Perry Hunter MD Symptom Based Call 02/11/2025 Telephone [facility] Medicine at [address] [place] [address] Perry Hunter MD Referral Request from Last [...] on file Legal Sex Female 6:16 AM [facility] Gender Identity Female 12/14/2021 12:07 PM [facility] Sexual Orientation Not on file History Length [...] - 2023-2 5 season) 2024 11/03/2021, 10/13/2021 Regular Well Visit/Exam 18-64 01/10/2025, 07/13/2023, 12/20/2022, Additional history exists Depression Screening 06/21/2025 06/21/2024, 12/13/2023, 11/16/2023, Additional history exists Influenza Vaccine (Season Ended) 2025 09/12/2023, 11/16/2022, 09/07/2021, Additional history exists Hepatitis B Screening Completed 08/17/2004 , 2003, 2003 Varicella Vaccines Completed 08/12/2009, 0 08/12/2007, 02/14/2005 Meningococcal Vaccine Completed 03/23/2021 , 04/16/2015, 04/16/2015 HPV Vaccines Completed 07/06/2022, 04/23/2018 Hepatitis C Screening Completed 11/23/2023, 023 Goals Goal Patient Goal Type Associated Problems Recent Progress Patient-Stated? Author BH-Pain Behavioral Health Improving( 5:09 PM [facility]) Kina Sotomayor, PhD Note: Increase non-pharmacological strategies for coping with pain and GI Sx Procedures Procedure Name Priority Date/Time Associated Diagnosis Comments HEPATITIS C ANTIBODY Routine 11/23/2023 2:06 PM [facility] STI (sexually transmitted infection) from Last 3 Months or Most Recently Relevant to Health Maintenance Results * Hepatitis C antibody Blood (11/23/2023 2:06 PM [facility]OM[facility] CO[facility]) Hep C Ab NON-REACTI VE NON-REACT [facility] Comment: HCV antibody was non-reactive. There is no laboratory evidence of HCV infection. In most cases, no further action is required. However, if recent HCV exposure is suspected, a test for HCV RNA (test code 21422) is suggested. For additional information please refer to http://education.[employer]/faq/PSU99p2 (This link is being provided for informational/ educational purposes only.) Blood 11/23/2023 2:06 PM [facility] 11/23/2023 2:09 PM [facility] Tracey Bruce MD LAB MICROBIOLOGY - GEN ERAL ORDERABLES Final Result [facility] [id number] [address] [id number] from Last 3 Months or Most Recently Relevant to Health Maintenance Insurance [facility] [employer] [facility] O Care Teams Tech Ed/Woodshop Teacher Relationship Specialty Start Date End Date Perry Hunter MD PCP - General Family Medicine 02/24/21
--- OUTSIDE RECORDS SUMMARY | 2025-03-18 13:19 | XMS_ITS | Encounter Summary ---
Author Organization [facility] Healthcare Address [address] [place] [address] Care Team Providers Care Offal Roller Name Role Phone Perry Hunter MD Primary Care Provider Encounter Details Date Type Department Care Team (Late st Contact Info) Description 03/23/2021 Telephone [facility] Ultrasound [place] [address] Yaneth Rivera RDMS Social History Tobacco Use Types Packs/Day Years [...] on file Legal Sex Female 6:16 AM [facility] Gender Identity Female 12/14/2021 12:07 PM [facility] Sexual Orientation Not on file documented as of this encounter Plan of Treatment Not on file documented as of this encounter Visit Diagnoses Not on filedocumented in this encounter Additional Health Concerns Infection Onset Date Last Indicated Resolved Time COVID: Suspected 11/23/2023 11/23/2023 11/24/2023 3:05 AM [facility] Exposure, COVID-19 Comment:Added automatically based on COVID19 lab answers indicating exposure risk 11/23/2023 11/23/2023 12/03/2023 3:[address] COVID: Suspected 11/23/2023 11/24/2023 11/24/2023 10:11 AM [facility] documented as of this encounter Care Teams Offal Roller Relationship Specialty Start Date End Date Perry Hunter MD PCP - General Family Medicine 02/24/21 documented as of this encounter
--- OUTSIDE RECORDS SUMMARY | 2025-03-18 13:19 | XMS_ITS | Clinical Summary ---
Author Organization [facility] Address [address] [place] [address] Care Team Providers Care Service Person Name Role Phone Aicha Myles DO Primary Care Provider Unavailable Source Comments [facility],non-owned Affiliates and Associated Physician Practices is amultiple site organization consisting of ambulatory clinics and hospital sitesin [place], [place], [place] and [place]. This disclosure is being madepursuant to the Care Everywhere program and may not contain all information available regarding this patient. Last updated 18.[facility] Allergies Active Allergy Reactions Criticality Noted Date Comments Sulfamethoxazole W-Trimethoprim Urticaria Medium 06/2019 Medications * Be aware that medications may not be up to date on this document. Alwaysverify current medications with the patient. SPRINTEC 28 0.25-35 MG-MCG tablet Take 1 tablet by mouth once daily 0 Active nortriptyline (PAMELOR) 25 MG capsuleIndicatio ns:Intractable chronic migraine without aura and without status migrainosus Take 1 (one) capsule by mouth at bedtime 30 capsule 3 2 Active ketorolac (TORADOL) 10 MG tabletIndication s:Intractable chronic migraine without aura and without status migrainosus Take with Reglan and Compazine every 4 hours for no more than 24 hours. 10 tablet 2 Active metoclopramide (REGLAN) 10 MG tabletIndication s:Intractable chronic migraine without aura and without status migrainosus Take with Toradol and Compazine every 4 hours for no more than 24 hours. 10 tablet 2 Active prochlorperazine (COMPAZINE) 10 MG tabletIndication s:Intractable chronic migraine without aura and without status migrainosus Take with Toradol and Reglan every 4 hours for no more than 24 hours. 10 tablet 2 Active Immunizations Immunization Administration Dates Next Due INFLUENZA VACCINE, QUADR. (F LUZONE; FLULAVAL; FLUARIX; AFLURIA QUADRIVALENT; 6MO+), 0.5 ML (IIV4) 09/15/2020 Social History Tobacco Use Types Packs/Day Years Used Date Smoking Tobacco: Never Smokeless Tobacco: Never Comments No Sex and Gender Information Value Date Recorded Sex Assigned at Not on file Legal Sex Female 1:46 PM CDT Gender Identity Not on file Sexual Orientation [...] Health Maintenance Due Date Last Done Comments HIV SCREENING 2018 HPV VACCINE (1 - 3-dose series) 2018 CHLAMYDIA/GONORRHEA SCREENING 2019 MENINGOCOCCAL (Group B) VACCINE SHARED DECISION-MAKING (1 of 2 - Standard) 2019 HEPATITIS C SCREENING 08/05/2021 DTAP/TDAP/TD VACCINES (1 - Tdap) 2022 HEPATITIS B VACCINE (1 of 3 - 19+ 3-dose series) 2022 COVID-19 VACCINE (3 - 2023- season) 2024 11/03/2021, 10/13/2021 DEPRESSION SCREENING 11/20/2024 INFLUENZA VACCINE (Season Ended) 2025 09/07/2021, 09/15/2020, 10/30/2018, Additional history exists ZOSTER VACCINE (1 of 2) 2053 HIB VACCINE Aged Out No longer eligi ble based on patient's age to complete this topic MENINGOCOCCAL GROUPS A/C/Y/W VACCINE Aged Out No longer eligible based on patient's age to complete this topic PNEUMOCOCCAL VACCINE Aged Out No long er eligible based on patient's age to complete this topic Insurance [employer] Care Teams Service Person Relationship Specialty Start Date End Date Aicha Myles DO PCP - General Family Medicine 08/27/19
[2025-03-18 14:06] LABS: Bacteria Urine 4+ /hpf; Bilirubin Urine Negative (Negative); Blood Urine 2+ (Negative); Color Urine Yellow (Yellow); Glucose Urine UA Negative (Negative); Ketones Urine Negative (Negative); Leukocyte Esterase Ur 2+ LEU/UL (Negative); Nitrate Urine Negative (Negative); Protein Urine 3+ mg/dL (Negative); RBC Urine >100 /hpf (0-2); Specific Grav Ur 1.019 (1.001-1.035); Squamous Epithelial Cell Urine Many /hpf (Few); WBC Urine >100 /hpf (0-3)
[2025-03-18 14:14] LABS: Add Urine Microscopic? YES; Appearance Urine Cloudy (Clear)
== END 2025-03-18 12:17 | disposition home or self-care (01) ==
LOC: ANHGOSHLAB 12:18
PROVIDERS: PCP Family Medicine; Visit Provider Family Medicine
DX: R31.9 Hematuria, unspecified (principal); R30.0 Dysuria; R39.15 Urgency of urination
CPT/HCPCS: 81001; 87086; 87186

== ENCOUNTER 2025-05-30 08:40 | Emergency (ER) | payer OTHER, SELFPAY ==
[2025-05-30 08:54] VITALS: BP 122/83; PULSE 97; RESP 16; TEMP 37.1; O2SAT 100
[2025-05-30 09:24] LABS: EDSTREPNEGPOS1 Negative (Negative)
--- NOTE | 2025-05-30 09:28 | ED_ITS ---
HPI - URI/Sore Throat General Chief Complaint: Upper Respiratory Infection Stated Complaint: Sore Throat Time Seen by Provider: 05/30/25 09:22 Source: patient and RN notes reviewed Mode of arrival: ambulatory Limitations: no limitations History of Present Illness HPI Narrative: Patient presents today with a 6 day history of productive cough, nasal congestion, with development of sore throat yesterday and tightness in the airway. Denies fever. She has tried some cough drops without relief. No history of asthma. She does vape. Related Data Home Medications ?Medication ?Instructions ?Recorded ?Confirmed ?Last Taken ?Type quetiapine 200 mg tablet (Seroquel) 200 mg PO DAILY 02/12/25 05/30/25 Unknown History Hemax(methylfolate glucosamin) 05/30/25 Unknown History divalproex 250 mg tablet,delayed 250 mg PO TID 05/30/25 05/30/25 Unknown History release Allergies Allergy/AdvReac Type Severity Reaction Status Date / Time sulfamethoxazole (From Allergy Hives Verified 05/30/25 08:44 Septra) trimethoprim (From ) Allergy Hives Verified 05/30/25 08:44 [facility] Past Medical History Medical History Bipolar 1 disorder Headache, classical migraine Tonsillitis Surgical History Surgical History No history of previous surgery Family History Family History Other No significant family history Social History Social History Smoking status: Never smoker Alcohol intake: never Substance use: never Living arrangements: with family Comments At time of signature, I have reviewed and agree with nursing past medical, surgical, social and family history unless otherwise noted. Please see nursing chart for further information. There is no relevant family history pertinent to the presenting complaint Exam Narrative: GENERAL: Well-appearing, well-nourished, and in no acute distress. HEAD: Normocephalic, atraumatic. EYES: EOMI. No redness or drainage. Conjunctivae normal. ENT: Mucous membranes pink and moist. Nares mildly congested. No rhinorrhea. TMs normal bilaterally. Throat very mildly erythematous without edema or exudate. Uvula midline. NECK: Normal AROM. Supple. Left anterior cervical chain lymphadenopathy. CHEST: No respiratory distress. Clear to auscultation. HEART: Regular rate and rhythm. No murmur appreciated. EXTREMITIES: Normal range of motion. No edema. SKIN: Warm, dry, no rash. Capillary refill normal. Normal skin turgor. NEURO: No focal deficits. Alert and oriented x3. Gait steady. PSYCH: Normal affect. No signs of depression or anxiety. Course Course Level of Care: Express Care Visit Vital Signs Vital signs: Vital Signs Temperature 98.7 F 05/30/25 08:54 Pulse Rate 97 05/30/25 08:54 Respiratory Rate 16 05/30/25 08:54 Blood Pressure 122/83 05/30/25 08:54 Pulse Oximetry 100 05/30/25 08:54 Temperature 98.7 F 05/30/25 08:54 Pulse Rate 97 05/30/25 08:54 Respiratory Rate 16 05/30/25 08:54 Blood Pressure 122/83 05/30/25 08:54 Pulse Oximetry 100 05/30/25 08:54 Reviewed MDM - URI/Sore Throat MDM Narrative Medical decision making narrative: 19-year-old female patient presents today with a 6 day history of upper respiratory symptoms to include sore throat, airway tightness, nasal congestion productive cough. Denies fever. Patient does vape, with no history of asthma. She has tried cough drops but no other interventions. Negative rapid strep. Culture pending. Exam is unremarkable except for a mildly erythematous throat. Symptoms likely viral in etiology. Recommend Mucinex and an albuterol inhaler. Patient agrees with plan. Vital signs stable. Anticipatory guidance given. Differential Diagnosis Differential diagnosis: Likely upper respiratory infection, viral infection, bronchitis, pharyngitis and other (Strep throat) Lab Data Attestation: I reviewed the patient's lab results. Labs: Lab Results 05/30/25 Range/Units 09:21 POC Grp A Strep Screen Negative (Negative) Critical Care Time Critical Care Time Critical Care Time: No Discharge Plan Discharge Clinical Impression: Upper respiratory infection Qualifiers: URI type: unspecified URI Qualified Code(s): J06.9 - Acute upper respiratory infection, unspecified Patient Disposition: Home Condition: Stable Instructions: Upper Respiratory Infection (DC) Additional Instructions: Your rapid strep swab was negative today at [facility]. You will be notified in a few days if the culture comes back positive for strep, and appropriate antibiotics will be called in for you at that time. Your symptoms are likely due to a viral illness, which is not treated with antibiotics. Viral symptoms can be present for up to 7-10 days. Take Tylenol or ibuprofen for fever or pain. Consider starting some Mucinex to help break up any chest congestion. A prescription for an albuterol inhaler has been sent to your pharmacy to help with your airway tightness and cough. Rest and stay hydrated. Follow up with your PCP in 7 days if symptoms are not improving. Go to the ER immediately if you have any difficulty breathing or swallowing. Your blood pressure was elevated above 120/80 today at Urgent Care. This puts you above the threshold for follow up. Please schedule a followup visit with your personal physician as soon as possible, for further evaluation and treatment. Even blood pressure exceeding 120/80 may indicate pre-hypertension. Patient Language: Singaporean Prescriptions: New albuterol sulfate 90 mcg/actuation HFA aerosol inhaler 2 inh inhalation Q4-6H PRN (Reason: shortness of breath or wheezing) Qty: 8.5 0RF (DME) [employer] MDI Spacer Spacer See Rx Instructions .ROUTE .MEDSUPPLY Qty: 1 0RF Rx Instructions: As directed No Action divalproex 250 mg tablet,delayed release (DR/EC) 250 mg PO TID Hemax(methylfolate glucosamin) quetiapine [Seroquel] 200 mg tablet 200 mg PO DAILY ondansetron 4 mg tablet,disintegrating 4 mg PO Q8H PRN (Reason: nausea and vomiting) Qty: 20 3RF Follow-up/Referrals: Dale,Perry Sanchez MD [Primary Care Provider] - Stand Alone Forms: Work/School Release IP Time of Disposition: 09:34
== END 2025-05-30 09:39 | disposition home or self-care (01) ==
PROVIDERS: Emergency Provider Nurse Practitioner; PCP Family Medicine
DX: J06.9 Acute upper respiratory infection, unspecified (principal); F31.9 Bipolar disorder, unspecified
CPT/HCPCS: 87081; 87880; 99213; G0463